=== PATIENT | female | born 1985 | race Caucasian/White ===

== ENCOUNTER 2018-02-16 05:56 | Inpatient (IN) | payer BC ==
[2018-02-16] MEDS ORDERED: diphenhydrAMINE 50 MG/ML SDV IVPUSH PRN (06:00)
[2018-02-16] MEDS ORDERED: Oxytocin/Normal Saline 30 UNIT/500 ML BAG IV SCH (06:00)
[2018-02-16] MEDS ORDERED: Acetaminophen 325 MG Tab PO PRN (06:00)
[2018-02-16] MEDS ORDERED: Citric Acid/Sodium Citrate Solution 30 ML Cup PO ONE (06:00)
[2018-02-16] MEDS ORDERED: ceFAZolin 2 GM in Premix Bag 1 BAG IV ONE (06:00)
[2018-02-16] MEDS ORDERED: Carboprost Tromethamine 250 MCG/1 ML Amp IM ONE (06:00)
[2018-02-16] MEDS ORDERED: Tranexamic Acid 1,000 MG in Sodium Chloride 0.9% 100 ML IV PRN (06:00)
[2018-02-16] MEDS ORDERED: ePHEDrine 50 MG/ML SDV IVPUSH PRN (06:00)
[2018-02-16] MEDS ORDERED: Acetaminophen/oxyCODONE 325-5 MG Tab PO PRN (06:00)
[2018-02-16] MEDS ORDERED: Naloxone 2 MG/2 ML Syringe IVPUSH PRN (06:00)
[2018-02-16] MEDS ORDERED: Methylergonovine 0.2 MG/1 ML Amp IM PRN (06:00)
[2018-02-16] MEDS ORDERED: Ondansetron 4 MG/2 ML SDV IV PRN (06:00)
[2018-02-16] MEDS ORDERED: Misoprostol 400 MCG (4 X 100 MCG TAB) RECTAL PRN (06:00)
[2018-02-16] MEDS: Lactated Ringers 1,000 ML IV SCH ×4 (06:20→19:15)
[2018-02-16] MEDS ORDERED: Oxytocin/Normal Saline 60 UNIT/1,000 ML BAG ONE (07:08)
[2018-02-16] MEDS: Simethicone 80 MG Tab.Chew PO SCH ×5 (10:31→20:34)
[2018-02-16] MEDS: Ferrous Sulfate 325 MG Tab PO SCH ×2 (10:31→17:50)
[2018-02-16] MEDS: Prenatal Multivitamin with Calcium/Folic Acid/Iron Tab PO SCH ×2 (10:32→17:49)
--- NOTE | 2018-02-16 10:45 | OR ---
DATE: 02/16/2018 PREOPERATIVE DIAGNOSES: 1. Intrauterine at 39 and 4/7 weeks by 9 and 5/7-week ultrasound. 2. Contractions upon admission. 3. Previous , requests repeat low transverse . 4. Anemia of with hemoglobin 10.1 upon admission. 5. Group B Streptococcus negative. 6. Use of Clomid for this . 7. G3, P1-0-1-1. POSTOPERATIVE DIAGNOSES: 1. Intrauterine at 39 and 4/7 weeks by 9 and 5/7-week ultrasound, delivered. 2. Contractions upon admission. 3. Previous , requests repeat low transverse . 4. Anemia of with hemoglobin 10.1 upon admission. 5. Group B Streptococcus negative. 6. Use of Clomid for this . 7. G3, P1-0-1-1. 8. Difficulty delivering vertex through the incision, requiring Kiwi vacuum assistance. 9. Nuchal cord x2, reduced bluntly with delivery. 10.True cord knot. PROCEDURE PERFORMED: Nonstress test followed by repeat low transverse section. Procedure performed by: 1. Ritesh Lane MD. 2. Kalia Keith MD. 3. Traci Acevedo MS-III. ANESTHESIA: Spinal. ESTIMATED BLOOD LOSS: 350 mL. INTRAVENOUS FLUIDS: 1500 mL. URINE OUTPUT: 500 mL in clear yellow. START TIME: 0814 hours. UTERINE INCISION: 0815 hours. DELIVERY TIME: 0817 hours. STOP TIME: 0830 hours. FINDINGS: Male. scores of 6 and 8. Weight pending. DESCRIPTION OF PROCEDURE IN DETAIL: After proper consent was obtained, the patient was brought to the operating room where spinal anesthetic was administered. A Hadley was placed in preop under sterile conditions. Abdomen was prepped and draped in normal sterile fashion with the patient was placed in supine position with left lateral tilt. A skin incision was then made over lower abdomen in a transverse Pfannenstiel- type fashion over the previous scar. This was carried down the fascia and scored in the midline. The subcutaneous tissue was raked laterally with Solomon retractor. The fascial incision was extended in a transverse fashion using curved Zarco's. Sharon clamps x2 were used to grasp the superior aspect of the fascia, and the rectus muscles were dissected from the fascia using sharp and blunt technique. In a similar fashion, Sharon clamps x2 were used to grasp the inferior portion of the incision, and rectus pyramidalis muscles were dissected from the fascia using sharp and blunt technique. The rectus muscles were in the midline with blunt technique. The abdominal cavity was entered with blunt technique. Incision was extended superiorly and inferiorly with blunt technique. Howard O large retractor was then introduced and used. Vesicouterine peritoneum was identified and incised in transverse fashion with Metzenbaum scissors, and bladder flap was made digitally. A curvilinear incision was made on the lower uterine segment at 0815 hours. Uterus was entered sharply. The uterine incision was then extended in a transverse fashion using blunt technique. Bulging bag of water was noted and ruptured with Allis clamps, revealing copious amounts of clear fluid. vertex was then attempted to be delivered through the incision with difficulty. Kiwi vacuum was called for and applied to the vertex, pumped up to the green with gentle pulling with fundal pressure, vertex was delivered followed by rest of the infant with nuchal cord x2 reduced bluntly with delivery. True cord knot was noted as well. Mouth and nares were suctioned on the patient's lap. Cord was doubly clamped and cut, and the was brought to the team. Then, approximately 10 mL of cord blood was obtained for labs. Placenta was then delivered with gentle cord traction and fundal massage. Uterine cavity was cleared of all blood clots with a lap sponge. Bar clamps were used to grasp the uterine incision. This was closed in a running locked fashion and tied at the lateral margins with 1-0 Vicryl. First inspection of the uterine incision revealed hemostasis. Howard O retractor was then removed and paracolic gutters were then cleared of all blood clots and debris with lap sponge. Anterior cul-de-sac was then irrigated copiously, and all blood clots were removed. Second and final inspection of the uterine incision and anterior cul-de-sac revealed hemostasis. The rectus muscles were then reapproximated in the midline with [id number] stitch using 1-0 Vicryl. Subfascial tissue was found to be hemostatic. Fascia was closed in a running fashion and tied at lateral margin with 0 looped PDS. Subcutaneous tissue was irrigated copiously. Hemostasis was reassured. Skin was reapproximated with medium maribeth. Sterile Aquacel dressing was applied. Uterine fundus was firm and massaged at the conclusion of the case +1 above the umbilicus. No immediate complications were noted. Sponge, lap, and needle counts were correct. The patient received 2 g Ancef preoperatively, Pitocin per protocol, and will receive Toradol at the conclusion of the case for pain control. Mother and are currently stable at the time of dictation. [facility] /[id number]
--- NOTE | 2018-02-16 10:52 | OBOUT ---
DATE: 02/16/2018 DATE AND TIME OF NST: Date: 02/16/2018. Time: 6:45 to 6:59. REASON FOR NST: 1. Intrauterine at 39 and 4/7 weeks by 9 and 5/7-week ultrasound. 2. Previous , request for repeat low transverse . 3. Contractions upon admission. 4. Anemia of . Hemoglobin 10.1 upon admission. 5. GBS negative. 6. Use of Clomid for this . 7. G3, P1-0-1-1. NST INTERPRETATION: During this time period, heart tone baseline is 115 to 120 and there are at least two 15 x 15 beat per minute accelerations making this strip reactive. It is also noted to be reassuring. Tocometer reveals potential of 4 contractions during this time period, which the patient feels. ASSESSMENT: 1. Nonstress test, reactive and reassuring. 2. Tocometer with contractions. PLAN: Please see admit history and physical for further details. [facility] /[id number]
[2018-02-16] MEDS ORDERED: Morphine PF 1 MG/ML Amp ONE (11:49)
[2018-02-16] MEDS ORDERED: ePHEDrine 50 MG/ML SDV IV ONE (11:49)
[2018-02-16] MEDS ORDERED: Lactated Ringers 1,000 ML IV ONE (11:49)
[2018-02-16] MEDS ORDERED: Oxytocin/Normal Saline 30 UNIT/500 ML BAG IV ONE (11:49)
[2018-02-16] MEDS ORDERED: Ketorolac 30 MG/ML SDV IVPUSH ONE (11:49)
[2018-02-16] MEDS ORDERED: Bupivacaine 0.75%/D5W 2 ML Amp ONE (11:49)
[2018-02-16] MEDS: Ketorolac 30 MG/ML SDV IVPUSH SCH ×5 (14:26→22:12)
--- NOTE | 2018-02-16 14:53 | HP ---
PATIENT IDENTIFICATION: Madison Morrison is a 32-year-old, G3, P1-0-1-1 intrauterine at 39 and 4/7 weeks by 9 and 5/7-week ultrasound with a previous , requests a repeat low transverse , presents for repeat low transverse and has chief complaint of contractions. HISTORY OF PRESENT ILLNESS: The patient states contractions started approximately at 5:30 this morning, felt throughout the abdomen, described it as tolerable, coming every 2 to 3 minutes at the current time of dictation. She denies any spotting, bleeding, or leaking. She is here for a repeat low transverse as planned. Records were called for, reviewed as below, and supplemented by patient's history. OBSTETRICAL HISTORY: 1. On 05/05/2011, 40 weeks, delivered a female via primary low transverse C- section, weighing 4082 g. 2. On 07/2015, 10 weeks, had a spontaneous AB. ANTEPARTUM LABORATORY DATA: ABO blood type O positive. Negative antibody. Rubella immune. RPR nonreactive. Negative hepatitis B surface antigen. Negative hep C, HIV, GC, and Chlamydia. One-hour GTT was 107 on 12/01/2017, with hemoglobin 10.8 and platelets 222 at that time and started on iron. GBS negative on 01/12/2018. MEDICATIONS: 1. vitamins. 2. Iron sulfate. 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 PAST SURGICAL HISTORY: Primary low transverse as above and a laparoscopic cholecystectomy in July 2014. FAMILY HISTORY: Paternal grandfather with cancer. Maternal grandmother with diabetes. Father with diabetes. Celiac disease in daughter. Negative family history of clotting disorders or bleeding disorders, thyroid disease, anesthesia problems, or defects. SOCIAL HISTORY: The patient lives with Jarrell, her and father of her daughter. They live in [place]. She is a vet radiocommunications technician. Denies any alcohol, tobacco, or drug use. REVIEW OF SYSTEMS: Otherwise reviewed and felt to be noncontributory. OBJECTIVE: Vital Signs: Please see nurse's notes for further details. Blood pressures within normal limits. The patient is afebrile. Heart rate between 80 and 100 by central exam. Respiratory rate 16. Appearance: Female, appears stated age, acting appropriate for age. Nontoxic appearance. Talking when she has her contractions at the beginning, but unable to speak through them. HEENT: Head is atraumatic. EOMs intact. PERRLA. No scleral icterus. No obvious otorhinorrhea. Mucous membranes are moist. Neck: No obvious tenderness. Lungs: Clear to auscultation bilaterally. Heart: S1 and S2. Regular rate and rhythm. Abdomen: Gravid. Tanmay's indeterminate. Nontender and nondistended. Bowel sounds positive. No other organomegaly, pulsatile masses, or obvious hernias. No rebound, rigidity, or guarding with drapes on currently after abdominal cleanse. Extremities: Trace to 1+ pitting edema to proximal tibia. Deep tendon reflexes 1 to 2/4 bilaterally and symmetric in lower extremities. Psychiatric: Mood and affect are congruent. Judgment and insight are intact. Skin: Without cyanosis, clubbing, or jaundice. LABORATORY DATA: Labs reveal white cell count 7.9, hemoglobin 10.1, platelets 196. Tocometer reveals contractions every 2 to 3 minutes. heart tones in the 115s to 120s with accelerations seen. ASSESSMENT: 1. Intrauterine at 39 and 4/7 weeks by 9 and 5/7-week ultrasound. 2. Previous section, requests repeat low transverse section. 3. Contractions upon admit. Vaginal exam deferred as we will proceed to the OR as soon as crew is ready and available. 4. Group B Streptococcus negative. 5. Anemia of with a hemoglobin 10.1 upon admission. 6. Use of Clomid during this . 7. G3, P1-0-1-1. PLAN: Please see Epic notes for further details as well. I did discuss with her proceeding with her repeat low transverse , which has been planned for today. She is having contractions. We will proceed as soon as crew is ready and available. Did discuss with her in the past, as well as today, risks, benefits, alternatives, and complications of the , including, but not limited to, infection, bleeding, damage to the internal organs such as bowel, bladder, tubes, uterus, ovaries sometimes fetus rarely needing a blood transfusion or further surgery and rarer maternal or . She understands, agrees, and wishs to proceed. Verbal and written consent obtained. Questions were answered. We will proceed as above. The patient understands and agrees with the above treatment and plan. [facility] /[id number]
[2018-02-16] MEDS: Docusate Sodium 100 MG Cap PO PRN (20:35)
[2018-02-17] MEDS: Ketorolac 30 MG/ML SDV IVPUSH SCH (02:32)
[2018-02-17] MEDS: Lactated Ringers 1,000 ML IV SCH (02:32)
[2018-02-17] MEDS: Ferrous Sulfate 325 MG Tab PO SCH (08:44)
[2018-02-17] MEDS: Prenatal Multivitamin with Calcium/Folic Acid/Iron Tab PO SCH (08:44)
[2018-02-17] MEDS: Acetaminophen/oxyCODONE 325-5 MG Tab PO PRN ×2 (08:45→19:43)
[2018-02-17] MEDS: Docusate Sodium 100 MG Cap PO PRN ×2 (08:45→19:42)
[2018-02-17] MEDS: Simethicone 80 MG Tab.Chew PO SCH ×4 (08:45→21:15)
--- NOTE | 2018-02-17 11:28 | PN ---
DATE: 02/17/2018 SUBJECTIVE: Postop day #1, status post repeat low transverse section with vacuum assistance. No concerns per nursing staff or per patient. The patient feels that her pain is well controlled on current medications. Hadley catheter still in place with adequate urine output. The patient denies fevers or chills, lightheadedness or dizziness, headaches or blurry vision, shortness of breath or chest pain, nausea or vomiting, sharp abdominal pains or swelling, erythema or tenderness in any extremity. She is passing gas, but has not yet had a bowel movement. She feels that her lochia is improving. She is tolerating a general diet and has not yet ambulated. OBJECTIVE: Vital Signs: Temp 97.5 F, Heart rate 62, Blood pressure 109/63, Respiratory rate 16. General: Alert, pleasant, and in no acute distress. Heart: Regular rate and rhythm. S1 and S2. Lungs: Clear to auscultation bilaterally with normal respiratory effort. No wheezes, rhonchi, or rales. Abdomen: Soft, nontender, and nondistended. The uterus is firm and palpated at the level of the umbilicus. No excessive tenderness to palpation. Aquacel dressing is dry and intact. There is a small area of shadowing noted on the right-hand side of the dressing that has been outlined by nursing staff. Neurologic: No obvious neurologic deficits. Extremities: DAMIAN hoses applied to the lower extremities bilaterally, no pain to palpation of the calves. Skin: Warm, dry, and well perfused. LABORATORY DATA: WBCs 10.8, Hemoglobin 9.7, Platelets 166. ASSESSMENT: 1. Postoperative day #1 status post repeat low transverse section with vacuum assistance. 2. Intrauterine at 39 and 4/7 weeks, confirmed with a 9 and 5/7 weeks' ultrasound. 3. Previous section x1, request repeat low transverse section. 4. Contractions upon admit. Vaginal exam deferred. 5. Group B streptococcus negative. 6. Anemia of with a hemoglobin of 10.1 upon admission, current hemoglobin 9.7 and asymptomatic. 7. Use of Clomid during this . 8. 3, para 2-0-1-2. 9. Nuchal cord x2, reduced bluntly with delivery and true cord knot. PLAN: Continue routine and postoperative cares. Please see orders for further details. We will remove Hadley catheter and encourage the patient to ambulate. The plan has been discussed with the patient. She expressed understanding and is in agreement. We will continue to follow closely. The history, physical, assessment, and plan are per Dr. Lane, and this note is being scribed for Dr. Lane. seen and agreed with med student-REYNALDO. [facility] /[id number]
[2018-02-17] MEDS: Ibuprofen 800 MG Tab PO PRN ×2 (11:48→19:41)
[2018-02-18] MEDS: Acetaminophen/oxyCODONE 325-5 MG Tab PO PRN ×3 (01:00→23:44)
[2018-02-18] MEDS: Ibuprofen 800 MG Tab PO PRN ×3 (03:38→20:44)
[2018-02-18] MEDS: Docusate Sodium 100 MG Cap PO PRN ×2 (08:28→20:44)
[2018-02-18] MEDS: Simethicone 80 MG Tab.Chew PO SCH ×4 (08:28→20:44)
[2018-02-18] MEDS: Prenatal Multivitamin with Calcium/Folic Acid/Iron Tab PO SCH (08:28)
[2018-02-18] MEDS: Ferrous Sulfate 325 MG Tab PO SCH (08:28)
--- NOTE | 2018-02-18 08:48 | PN ---
DATE: 02/18/2018 SUBJECTIVE: Postop day #2, status post repeat low transverse section with vacuum assistance. No concerns per nursing staff or per patient. The patient feels that her pain is well controlled on current medications. She denies difficulty with urination, is passing gas, but has not yet had a bowel movement. She denies fevers or chills, lightheadedness or dizziness, headaches or blurry vision, shortness of breath or chest pain, nausea or vomiting, sharp abdominal pains or swelling, erythema or tenderness in any extremity. She feels that her lochia continues to improve. She is tolerating a general diet and is ambulating without difficulty. OBJECTIVE: Vital Signs: Temperature 97.5 Fahrenheit, heart rate 62, blood pressure 109/63, and respiratory rate 16. General: Alert, pleasant, in no acute distress. Heart: Regular rate and rhythm. S1 and S2. Lungs: Clear to auscultation bilaterally with normal respiratory effort. No wheezes, rhonchi, or rales. Abdomen: Soft, nontender, and nondistended. The uterus is firm and palpated at the level of the umbilicus. No excessive tenderness by palpation. Aquacel dressing is dry and intact. A small area of shadowing noted on the right-hand side of the dressing, that was outlined by nursing staff yesterday, has enlarged minimally. Neurologic: No obvious neurologic deficits. Extremities: DAMIAN hoses applied to the lower extremities bilaterally. No pain to palpation of the calves. Skin: Warm, dry, and well perfused. LABORATORY DATA: No new laboratory data. ASSESSMENT: 1. Postoperative day #2, status post repeat low transverse section with vacuum assistance. 2. Intrauterine at 39 and 4/7 weeks' gestation, confirmed with a 9 and 5/7-week ultrasound. 3. Previous x1, requests repeat low transverse . 4. Contractions upon admit, vaginal exam deferred. 5. Group B streptococcus negative. 6. Anemia of with a hemoglobin of 10.1 upon admission. Most recent hemoglobin 9.7 and asymptomatic. 7. Use of Clomid during this . 8. G3, P2-0-1-2. 9. Nuchal cord x2, reduced bluntly with delivery. 10.True cord knot. PLAN: Continue routine and postoperative cares. Please see orders for further details. The plan has been discussed with the patient. She expressed understanding and is in agreement. We will continue to follow closely and anticipate discharge tomorrow, 02/19/2018. The history, physical, assessment and plan are per Dr. Lane; and this note is being scribed for Dr. Lane. seen and agreed with med student REYNALDO MODL /[id number] KELLY
[2018-02-18] MEDS: Ondansetron 4 MG Tab.DIS PO PRN (10:30)
[2018-02-19] MEDS: Ferrous Sulfate 325 MG Tab PO SCH (08:11)
[2018-02-19] MEDS: Simethicone 80 MG Tab.Chew PO SCH (08:11)
[2018-02-19] MEDS: Docusate Sodium 100 MG Cap PO PRN (08:11)
[2018-02-19] MEDS: Acetaminophen/oxyCODONE 325-5 MG Tab PO PRN (08:11)
[2018-02-19] MEDS: Ondansetron 4 MG Tab.DIS PO PRN (10:31)
[2018-02-19] MEDS ORDERED: Prenatal Multivitamin with Calcium/Folic Acid/Iron Tab PO SCH (21:00)
--- NOTE | 2018-02-21 13:57 | DISCH ---
ADMISSION DIAGNOSES: 1. Intrauterine at 39 and 4/7 weeks by 9 and 5/7-week ultrasound. 2. Previous , requests repeat low transverse . 3. Contractions upon admission. 4. Anemia of with hemoglobin 10.1 upon admission. 5. Group B Streptococcus negative. 6. G3, P1-0-1-1. 7. Use of Clomid for this . DISCHARGE DIAGNOSES: 1. Intrauterine at 39 and 4/7 weeks by 9 and 5/7-week ultrasound, delivered. 2. Previous , requests repeat low transverse . 3. Contractions upon admission. 4. Anemia of with hemoglobin 10.1 upon admission. 5. Group B Streptococcus negative. 6. G3, P1-0-1-1. 7. Use of Clomid for this . 8. Vacuum assistance, required with the . 9. Nuchal cord x2, reduced bluntly with delivery. 10.True cord knot. 11.Anemia with acute blood loss, hemoglobin dropping down to 9.7 on postop day #1. PROCEDURE PERFORMED: Nonstress test, followed by a repeat low transverse C- section. HISTORY OF PRESENT ILLNESS: Please see H and P. SUMMARY OF HOSPITAL COURSE: The patient was admitted on the above date with the above diagnoses, underwent elective repeat low transverse that was proceeded with contractions under a spinal anesthesia with an EBL of 350 mL, yielding a male, scores 6 and 8, weighing 9 pounds 2 ounces (4150 g), had a nuchal cord x2 as well as a true cord knot. Vacuum assistance was required with difficulty delivering the vertex. Please see delivery note for further details. Postoperative days #1 and #2, please see progress note. Postoperative day #3, date of discharge, the patient was tolerating p.o.'s, ambulating, urinating, passing flatus, and requesting discharge. PHYSICAL EXAMINATION: Vital Signs: Last set of vitals are updated and listed in the chart. Temperature 98.3, heart rate 76, blood pressure 110/72, and respiratory rate 16. Lungs: Clear to auscultation bilaterally. Heart: S1 and S2. Regular rate and rhythm. Abdomen: Firm uterus around -2 to 3 below the umbilicus. DAMIAN hoses are on. LABORATORY DATA: As above. CONDITION ON DISCHARGE COMPARED TO CONDITION ON ADMISSION: Improved. DISCHARGE INSTRUCTIONS: 1. Diet: As tolerated. 2. Activity: No lifting more than 20 pounds. No sit-ups, straining, and pelvic rest for the next 6 weeks with immediate return to fertility discussed with the patient. 3. Reasons to return or go to the emergency room were discussed with the patient in detail including, but not limited to, temperature greater than 100.4, foul-smelling discharge red hot tender breasts, or increased vaginal bleeding or increasing pain, drainage, or redness around the incision. DISCHARGE MEDICATIONS: 1. [id number] Tylenol or ibuprofen for pain. 2. Percocet 5/325 one to two q.6 hours p.r.n., #30, no refills. 3. Iron sulfate 325 b.i.d. x6 weeks, dispense q.s., no refills. 4. Colace 100 mg b.i.d. p.r.n., #60, no refills. I did discuss the use of Percocet and adverse effects of the use of this medication and not driving with this medication. FOLLOWUP: Follow up on 02/21/2018, for staple removal as well as with her baby. PLAN: I did discuss with her in the interim reasons to return or go to the emergency room in regard to her baby. She understands and agrees with the above treatment and plan. [facility] /[id number]
== END 2018-02-19 11:51 | disposition home or self-care (01) | DRG 540 ==
LOC: DL.MS 05:56 → OBSVTOIN 08:17 → DL.OB 08:41 → DL.MS 02-18 09:43
PROVIDERS: ADMIT Family Medicine; ATTEND Family Medicine
PROC: 10D00Z1 Extraction of Products of Conception, Low, Open Approach (ICD-10-PCS; principal; 2018-02-16)
DX: O34.211 Maternal care for low transverse scar from previous cesarean delivery (principal); Z3A.39 39 weeks gestation of pregnancy; Z37.0 Single live birth; O69.2XX0 Labor and delivery complicated by other cord entanglement, with compression, not applicable or unspecified; O99.02 Anemia complicating childbirth; D64.9 Anemia, unspecified; Z79.899 Other long term (current) drug therapy
CPT/HCPCS: 36415; 85027; 86850; 86900; 86901; A9270-GY; J0690; J1885; J2274; J2405; J2590; J7120